=== PATIENT | female | born 1955 | race Caucasian/White ===

== ENCOUNTER → 2017-12-13 11:21 | Outpatient (CLI) | payer BC ==
[2016-03-11 07:46] VITALS: BMI 29.3
[~2017-12-13 11:21] MED LIST: AMBIEN10 MG PO; DILAUDID2 MG PO; LEVOXYL150 MCG PO; TRIAMTERENE-HCT1 TA1 PO
== END | disposition home or self-care (01) ==
LOC: D.CT 11:00
DX: R10.31 Right lower quadrant pain (principal)

== ENCOUNTER 2018-07-25 11:33 | Observation (INO) | payer BC ==
[2018-07-25] VITALS (8 sets, daily range): BP systolic 105–139; BP diastolic 65–78; Ht 157.5 cm; Wt 73.8 kg
[~2018-07-25] VITALS: Ht 157.5 cm; Wt 73.8 kg
[2018-07-25 12:12] LABS: BASOPHILS 0.5 % (0-2); EOSINOPHILS 1.1 % (0-7); HEMATOCRIT 41.7 % (36.0-48.0); HEMOGLOBIN 15.3 g/dL (12-16); IMMATURE GRANULOCYTES 0.4 % (0-5); LYMPHOCYTES 36.8 % (15-50); MCHC 36.7 g/dL (31.0-37.0); MCV 84.4 fL (80.0-100.0); MEAN PLATELET VOLUME 9.2 fL (7.4-10.4); MONOCYTES 7.2 % (2-11); PLATELET COUNT 209 10x3/uL (130-400); RBC 4.94 10x6/uL (4.00-5.40); RDW 12.4 % (11.5-14.5); WBC 7.9 10x3/uL (4.8-10.8)
[2018-07-25 12:13] LABS: APTT 24.3 SECONDS (22.8-39.4); INR 0.98 (0.85-1.17); PROTIME 12.5 SECONDS (11.6-15.0)
[2018-07-25 12:39] LABS: ALBUMIN 3.4 g/dL (3.4-5.0); ALKALINE PHOSPHATASE 58 U/L (46-116); ALT (SGPT) 34 U/L (10-68); BILIRUBIN - TOTAL 0.68 mg/dL (0.2-1.3); CALC OSMOLALITY 282 mosm/kg (275-300); CALCIUM 8.8 mg/dL (8.5-10.1); CARBON DIOXIDE 28.9 mmol/L (21.0-32.0); CHLORIDE - SERUM 101 mmol/L (98-107); CREATINE KINASE 96 UL (21-215); GLUCOSE 185 mg/dL (74-106); MAGNESIUM - SERUM 2.1 mg/dL (1.8-2.4); PROTEIN - SERUM 7.2 g/dL (6.4-8.2); SODIUM 139 mmol/L (136-145); TROPONIN-I < 0.017 ng/mL (0.000-0.060); UREA NITROGEN 13 mg/dL (7-18); eGFR NON AFRICAN AMERICAN 59 mL/min (90-120)
--- NOTE | 2018-07-25 12:40 | NUR ---
CC URINE COLLECTED ET TO LAB.
[2018-07-25 12:43] LABS: POTASSIUM - SERUM 2.3 mmol/L (3.5-5.1)
--- NOTE | 2018-07-25 12:52 | NUR ---
PT REPORT HANDED OFF FROM AUDREY GONZALES. PT STABLE, CALL LIGHT WITHIN REACH, WILL CONTINUE TO MONITOR.
--- NOTE | 2018-07-25 13:10 | NUR ---
TRAUMA BAND # [id number] PT STABLE, CALL LIGHT WITHIN REACH. SANDWICH PROVIDED. PT STABLE, WILL CONTINUE TO MONITOR.
[2018-07-25] MEDS ORDERED: SYNTHROID175 MCG PO (13:30)
[2018-07-25 13:40] LABS: APPEARANCE CLEAR (CLEAR); COLOR YELLOW (YELLOW)
[2018-07-25 13:41] LABS: BACTERIA FEW /hpf (NONE SEEN); BILIRUBIN NEGATIVE (NEGATIVE); EPITHELIAL CELLS OCC /hpf (0-5); GLUCOSE NEGATIVE (NEGATIVE); KETONE NEGATIVE (NEGATIVE); MUCUS <1+ /lpf (NONE SEEN); NITRITE NEGATIVE (NEGATIVE); PROTEIN NEGATIVE (NEGATIVE); RED CELLS - URINE OCC /hpf (0-5); UROBILINOGEN NORMAL (NORMAL); WHITE CELLS - URINE OCC /hpf (0-5)
--- NOTE | 2018-07-25 14:17 | NUR ---
ROCEPHIN INFUSION COMPLETE AT THIS TIME.
--- NOTE | 2018-07-25 16:52 | NUR ---
DINNER TRAY PROVIDED, PT STABLE, CALLLIGHT WITHIN REACH, WILL CONTINUE TO MONITOR.
--- NOTE | 2018-07-25 17:15 | NUR ---
PHARMACY CONTACTED AT THIS TIME FOR DYAZIDE.
--- NOTE | 2018-07-25 18:24 | NUR ---
PT STABLE, CALL LIGHT WITHIN REACH, DENIES NEEDS WILL CONTINUE TO MONITOR.
--- NOTE | 2018-07-25 19:39 | NUR ---
PT STABLE, CALL LIGHT WITHIN REACH, DENIES NEEDS, WILL CONTINUE TO MONITOR.
[2018-07-25] MEDS ORDERED: LEVOXYL150 MCG PO (20:23)
--- NOTE | 2018-07-25 20:33 | NUR ---
BETZAIDA DISCHARGED PT. PROVIDED VERBAL INSTRUCTIONS. PT ACKNOWLEDGED.
--- NOTE | 2018-07-25 20:40 | NUR ---
HOMECARE AND FOLLOW UP INFORMATION PROVIDED, PT ACKNOWLEDGED, PT STABLE AT NV.
== END 2018-07-25 20:40 | disposition home or self-care (01) ==
LOC: D.ER 11:33 → D.EDHOLD 13:18 → OBSVTIME 13:37 → D.EDHOLD 20:40 → D.M2 20:53
PROVIDERS: Family Medicine; ADMIT Internal Medicine Nephrology; ATTEND Internal Medicine Nephrology
DX: R55 Syncope and collapse (principal); E03.9 Hypothyroidism, unspecified; E87.6 Hypokalemia; E86.0 Dehydration; R19.7 Diarrhea, unspecified; T50.901A Poisoning by unspecified drugs, medicaments and biological substances, accidental (unintentional), initial encounter; E05.80 Other thyrotoxicosis without thyrotoxic crisis or storm; R53.1 Weakness; M17.0 Bilateral primary osteoarthritis of knee; R42 Dizziness and giddiness; Z86.73 Personal history of transient ischemic attack (TIA), and cerebral infarction without residual deficits

== ENCOUNTER 2018-11-30 18:27 | Emergency (ER) | payer BC ==
[~2018-11-30] VITALS: Ht 157.5 cm; Wt 72.7 kg
[~2018-11-30 18:27] MED LIST changes: +SYNTHROID175 MCG PO
[2018-11-30 18:43] VITALS: Ht 157.5 cm; Wt 72.7 kg
[2018-11-30 19:22] LABS: BASOPHILS 0.3 % (0-2); EOSINOPHILS 0.7 % (0-7); HEMATOCRIT 41.8 % (36.0-48.0); IMMATURE GRANULOCYTES 0.3 % (0-5); LYMPHOCYTES 29.9 % (15-50); MCH 30.5 pg (26.0-34.0); MCHC 35.9 g/dL (31.0-37.0); MCV 85.1 fL (80.0-100.0); MEAN PLATELET VOLUME 9.4 fL (7.4-10.4); NEUTROPHILS 59.8 % (40-80); PLATELET COUNT 229 10x3/uL (130-400); RBC 4.91 10x6/uL (4.00-5.40); RDW 12.4 % (11.5-14.5); WBC 8.6 10x3/uL (4.8-10.8)
[2018-11-30 19:52] LABS: ALBUMIN 3.8 g/dL (3.4-5.0); ANION GAP 13.5 mmol/L (8-16); BILIRUBIN - TOTAL 1.21 mg/dL (0.2-1.3); CALCIUM 9.4 mg/dL (8.5-10.1); CARBON DIOXIDE 28.1 mmol/L (21.0-32.0); MAGNESIUM - SERUM 1.9 mg/dL (1.8-2.4); PROTEIN - SERUM 7.5 g/dL (6.4-8.2)
[2018-11-30 20:00] LABS: POTASSIUM - SERUM 2.6 mmol/L (3.5-5.1)
[2018-11-30] MEDS ORDERED: K-DUR20 MEQ PO (20:38)
[2018-11-30 22:20] VITALS: BP 106/65
== END 2018-11-30 22:11 | disposition home or self-care (01) ==
LOC: D.ER 18:27
PROVIDERS: Family Medicine
DX: S09.90XA Unspecified injury of head, initial encounter (principal); W18.30XA Fall on same level, unspecified, initial encounter; Y93.89 Activity, other specified; Y92.89 Other specified places as the place of occurrence of the external cause; R41.0 Disorientation, unspecified; E87.6 Hypokalemia

== ENCOUNTER → 2019-09-18 09:18 | Outpatient (CLI) | payer MEDICARE, BC ==
[2018-11-30 18:43] VITALS: BMI 29.3
[~2019-09-18 09:18] MED LIST changes: +K-DUR20 MEQ PO
== END | disposition home or self-care (01) ==
LOC: D.CT 09:18
PROVIDERS: ATTEND Surgery
DX: R10.30 Lower abdominal pain, unspecified (principal)

== ENCOUNTER → 2020-10-15 13:58 | Outpatient (CLI) | payer MEDICARE, BC ==
[2018-11-30 18:43] VITALS: BMI 29.3
== END | disposition home or self-care (01) ==
LOC: D.CT 13:58
PROVIDERS: ATTEND Surgery
DX: R10.31 Right lower quadrant pain (principal)

== ENCOUNTER 2020-11-05 07:45 | Day surgery (SDC) | payer MEDICARE, BC ==
[2020-11-04 15:45] LABS: BASOPHILS 0.8 % (0-2); EOSINOPHILS 1.7 % (0-7); HEMATOCRIT 41.9 % (36.0-48.0); HEMOGLOBIN 14.5 g/dL (12-16); MCH 29.6 pg (26.0-34.0); MCHC 34.6 g/dL (31.0-37.0); MCV 85.6 fL (80.0-100.0); MEAN PLATELET VOLUME 7.1 fL (7.4-10.4); MONOCYTES 9.3 % (2-11); NEUTROPHILS 55.2 % (40-80); PLATELET COUNT 266 10x3/uL (130-400); WBC 5.8 10x3/uL (4.8-10.8)
[2020-11-04 15:55] LABS: ANION GAP 9.6 mmol/L (8-16); CALCIUM 9.3 mg/dL (8.5-10.1); CARBON DIOXIDE 31.5 mmol/L (21.0-32.0); POTASSIUM - SERUM 3.1 mmol/L (3.5-5.1)
[~2020-11-05] VITALS: Ht 157.5 cm; Wt 64.9 kg
[~2020-11-05 07:45] MED LIST changes: +GLUCOPHAGE500 MG PO; +LEVOTHYROXINE137 MCG PO; +ULTRAM50 MG PO; +VICTOZA0.6 MG/0.1 SQ; +XANAX0.5 MG PO
[2020-11-05 09:05] VITALS: BP 117/71; Ht 157.5 cm; Wt 64.9 kg
[2020-11-05] MEDS ORDERED: DILAUDID2 MG PO (11:28)
--- NOTE | 2020-11-05 12:17 | OP ---
PATIENT NAME: KAMARI BREWSTER MEDICAL RECORD: [id number] :53 LOCATION:D.OPS ADMISSION DATE: SURGEON: DUONG YOON MD DATE OF OPERATION: 11/05/2020 PREOPERATIVE DIAGNOSES: 1. Chronic right lower quadrant pain. 2. Hypothyroidism. POSTOPERATIVE DIAGNOSES: 1. Chronic right lower quadrant pain. 2. Hypothyroidism. PROCEDURE: Laparoscopic lysis of adhesions, time 60 minutes. SURGEON: Duong Yoon MD REPORT OF PROCEDURE: The patient's abdomen was prepped and draped in sterile fashion. A Veress needle was inserted in the left upper quadrant and the abdomen was insufflated. A 5-mm Visiport trocar was then inserted in the midline just above the umbilicus. With this, I could see the patient's Veress needle and there was no sign of any injury to bowel or surrounding structures. We then placed a 5-mm trocar under direct visualization in the left lateral abdomen and a final 5-mm trocar in the lateral aspect of the left lower quadrant. The patient had a lot of adhesions of the small bowel and fatty tissue to the anterior abdominal wall in the pelvis. The remainder of the abdomen had no signs of any adhesive changes. We began the tedious dissection, taking down the thick adhesions from the pelvis using sharp dissection with Metzenbaum scissors. Care was taken not to injure any of the small bowel with manipulation or with resection of the adhesions. We were eventually able to free up all of the adhesions off the anterior surface of the pelvic floor. I could see the patient's right lower quadrant in the pelvis really well. I did not see any evidence of any hernias. There were no signs of any masses or lesions. At this point, we irrigated out the abdomen and assured there was no sign of any bleeding. Once this was done, then we removed the insufflation. The ports were then removed. There was bleeding from the midline port, so I had to extend the incision slightly in order to treat this with electrocautery. We infused a total of 10 mL of 0.25% Marcaine with epinephrine to the surrounding tissues and then closed the incisions with subcutaneous 5-0 Monocryl. COMPLICATIONS: None. CONDITION: Stable. ANESTHESIA: General endotracheal and local. BLOOD LOSS: Minimal. TRANSINT:[id number] Voice Confirmation ID: [id number] DOCUMENT ID: [id number] OPERATIVE REPORT [id number] KAMARI BREWSTER CHRISTIAN MD at 1217 CC: LUCA PEDRO [id number] DICTATION DATE: 11/05/20 1132 PIVOT END POLISHER: 11/05/20 1148 REG [facility] [address] [id number]
--- NOTE | 2020-11-05 16:58 | NUR ---
1335 - IV D/C'D WITH TIP INTACT. DISCHARGE INSTRUCTIONS GIVEN.
--- NOTE | 2020-11-05 16:58 | NUR ---
1300 - UP TO BATHROOM. VOIDED WITHOUT DIFFICULTY.
--- NOTE | 2020-11-05 16:59 | NUR ---
1415 - UP TO DRESS FOR DISCHARGE. HAS BEEN VERY SLEEPY BUT MORE ALERT NOW.
--- NOTE | 2020-11-05 17:00 | NUR ---
1430 - DISCHARGED TO PRIVATE CAR VIA WHEELCHAIR.
== END 2020-11-05 14:30 | disposition home or self-care (01) ==
LOC: D.OPS 07:45
PROVIDERS: ATTEND Surgery
DX: R10.31 Right lower quadrant pain (principal); E03.9 Hypothyroidism, unspecified

== ENCOUNTER 2020-11-13 13:56 | Outpatient (CLI) | payer MEDICARE, BC ==
[~2020-11-13] VITALS: Ht 157.5 cm; Wt 61.8 kg
[2020-11-13 15:03] VITALS: Ht 157.5 cm; Wt 61.8 kg
== END 2020-11-13 15:22 | disposition home or self-care (01) ==
LOC: D.OPS 13:56
PROVIDERS: ATTEND Family Medicine
DX: M81.0 Age-related osteoporosis without current pathological fracture (principal)